=== PATIENT | female | born 1930 | race Native Hawaiian/Other Pacific Islander ===

== ENCOUNTER 2017-01-03 11:32 | Outpatient (CLI) | payer OTHER ==
[2017-01-03 13:02] LABS: POTASSIUM 3.7 mmol/L (3.6-5.2)
[2017-01-03 13:10] LABS: PLATELET COUNT 184 K/uL (152-353)
== END 2017-01-03 13:32 | disposition home or self-care (01) ==
LOC: LABW 11:32
PROVIDERS: Internal Medicine Nephrology
DX: I12.9 Hypertensive chronic kidney disease with stage 1 through stage 4 chronic kidney disease, or unspecified chronic kidney disease (principal); N18.3 Chronic kidney disease, stage 3 (moderate); E03.8 Other specified hypothyroidism
CPT/HCPCS: 36415; 80053; 80061; 84443; 85027

== ENCOUNTER 2017-01-10 10:25 | Outpatient (CLI) | payer OTHER | END 2017-01-10 23:41 | disposition home or self-care (01) | LOC: RESP 10:25 | DX: R07.9 Chest pain, unspecified (principal) | CPT/HCPCS: 93005; 93306 ==

== ENCOUNTER 2017-04-25 01:04 | Emergency (ER) | payer OTHER ==
[~2017-04-25] VITALS: Ht 160 cm; Wt 76.2 kg
[2017-04-25] MEDS ORDERED: BYSTOLIC5 MG PO (01:25)
[2017-04-25] MEDS ORDERED: HYDR25TA60 PO (01:26)
[2017-04-25] MEDS ORDERED: COZAAR100 MG PO (01:26)
[2017-04-25] MEDS ORDERED: STOOL SOFTNR100 M1 OR (01:27)
[2017-04-25] MEDS ORDERED: LEVO0.1519 PO (01:27)
[2017-04-25] MEDS ORDERED: VITAMIN D2000 UNI1 OR (01:28)
[2017-04-25] MEDS ORDERED: SYSTANE OP (01:28)
[2017-04-25 01:39] LABS: PLATELET COUNT 188 K/uL (152-353)
[2017-04-25 02:00] LABS: POTASSIUM 3.6 mmol/L (3.6-5.2)
[2017-04-25 04:36] VITALS: BP 190/82; TEMP 98.2
== END 2017-04-25 04:39 | disposition home or self-care (01) ==
LOC: ED 01:04
DX: K81.9 Cholecystitis, unspecified (principal); N28.1 Cyst of kidney, acquired; K76.0 Fatty (change of) liver, not elsewhere classified
CPT/HCPCS: 36415; 80053; 81000; 85027; 96374; 99284; J2405; Q9963

== ENCOUNTER 2017-05-02 08:48 | Outpatient (CLI) | payer OTHER ==
[~2017-05-02 08:48] MED LIST: BYSTOLIC5 MG PO; COZAAR100 MG PO; HYDR25TA60 PO; LEVO0.1519 PO; STOOL SOFTNR100 M1 OR; SYSTANE OP; VITAMIN D2000 UNI1 OR
[2017-05-02 09:10] LABS: PLATELET COUNT 175 K/uL (152-353)
[2017-05-02 10:50] LABS: POTASSIUM 4.3 mmol/L (3.6-5.2)
== END 2017-05-02 10:00 | disposition home or self-care (01) ==
LOC: LABW 08:48
PROVIDERS: Internal Medicine Nephrology
DX: I12.9 Hypertensive chronic kidney disease with stage 1 through stage 4 chronic kidney disease, or unspecified chronic kidney disease (principal); N18.3 Chronic kidney disease, stage 3 (moderate); E03.8 Other specified hypothyroidism
CPT/HCPCS: 36415; 80053; 82306; 82570; 84155; 84443; 85027

== ENCOUNTER 2017-06-12 10:03 | Outpatient (CLI) | payer OTHER ==
[2017-06-12 10:19] LABS: PLATELET COUNT 182 K/uL (152-353)
[2017-06-12 11:15] LABS: POTASSIUM 3.8 mmol/L (3.6-5.2)
== END 2017-06-12 19:26 | disposition home or self-care (01) ==
LOC: LABW 10:03
PROVIDERS: Internal Medicine Nephrology
DX: I12.9 Hypertensive chronic kidney disease with stage 1 through stage 4 chronic kidney disease, or unspecified chronic kidney disease (principal); N18.3 Chronic kidney disease, stage 3 (moderate); E03.8 Other specified hypothyroidism
CPT/HCPCS: 36415; 80053; 80061; 84443; 85027

== ENCOUNTER 2018-03-03 16:21 | Emergency (ER) | payer OTHER ==
[~2018-03-03] VITALS: Ht 160 cm; Wt 71.2 kg
[2018-03-03 16:28] VITALS: BP 198/84; TEMP 98.1
[2018-03-03 17:12] LABS: PLATELET COUNT 192 K/uL (152-353)
[2018-03-03 17:19] LABS: POTASSIUM 3.7 mmol/L (3.6-5.2)
== END 2018-03-03 19:10 | disposition home or self-care (01) ==
LOC: ED 16:21
DX: L98.8 Other specified disorders of the skin and subcutaneous tissue (principal); S90.812A Abrasion, left foot, initial encounter
CPT/HCPCS: 80053; 85027; 99282

== ENCOUNTER 2018-09-28 10:07 | Outpatient (CLI) | payer OTHER ==
[2018-09-28 10:52] LABS: PLATELET COUNT 177 K/uL (152-353)
== END 2018-09-28 19:48 | disposition home or self-care (01) ==
LOC: LABW 10:07
PROVIDERS: Internal Medicine Nephrology
DX: N18.3 Chronic kidney disease, stage 3 (moderate) (principal); I10 Essential (primary) hypertension; E03.9 Hypothyroidism, unspecified
CPT/HCPCS: 36415; 80053; 80061; 82570; 84155; 84443; 85027

== ENCOUNTER 2019-02-11 09:31 | Outpatient (CLI) | payer OTHER ==
[2019-02-11 09:57] LABS: PLATELET COUNT 190 K/uL (152-353)
[2019-02-11 10:29] LABS: POTASSIUM 4.3 mmol/L (3.6-5.2)
== END 2019-02-11 20:29 | disposition home or self-care (01) ==
LOC: LABW 09:31
PROVIDERS: Internal Medicine Nephrology
DX: I10 Essential (primary) hypertension (principal); N18.3 Chronic kidney disease, stage 3 (moderate); K64.9 Unspecified hemorrhoids; E03.9 Hypothyroidism, unspecified; E55.9 Vitamin D deficiency, unspecified; K63.5 Polyp of colon; R82.998 Other abnormal findings in urine
CPT/HCPCS: 36415; 80053; 81000; 82570; 83970; 84100; 84155; 85027; 87086; 87088

== ENCOUNTER 2019-08-12 09:45 | Outpatient (CLI) | payer OTHER ==
[2019-08-12 10:40] LABS: PLATELET COUNT 210 K/uL (152-353)
[2019-08-12 10:51] LABS: POTASSIUM 4.2 mmol/L (3.6-5.2)
== END 2019-08-12 23:17 | disposition home or self-care (01) ==
LOC: LABW 09:45
PROVIDERS: Internal Medicine Nephrology
DX: I10 Essential (primary) hypertension (principal); Z79.899 Other long term (current) drug therapy; E55.9 Vitamin D deficiency, unspecified
CPT/HCPCS: 36415; 80053; 81000; 82570; 82652; 83970; 84100; 84155; 85027; 87086; 87088

== ENCOUNTER 2020-01-14 10:06 | Outpatient (CLI) | payer OTHER ==
[2020-01-14 10:30] LABS: PLATELET COUNT 193 K/uL (152-353)
[2020-01-14 10:43] LABS: POTASSIUM 3.8 mmol/L (3.6-5.2)
== END 2020-01-14 19:47 | disposition home or self-care (01) ==
LOC: LABW 10:06
PROVIDERS: Internal Medicine Nephrology
DX: I12.9 Hypertensive chronic kidney disease with stage 1 through stage 4 chronic kidney disease, or unspecified chronic kidney disease (principal); R10.9 Unspecified abdominal pain; N18.3 Chronic kidney disease, stage 3 (moderate); K64.8 Other hemorrhoids; E03.8 Other specified hypothyroidism; K63.5 Polyp of colon; E55.9 Vitamin D deficiency, unspecified
CPT/HCPCS: 36415; 80053; 82570; 84155; 85027

== ENCOUNTER 2020-08-14 09:37 | Outpatient (CLI) | payer OTHER ==
[2020-08-14 10:13] LABS: PLATELET COUNT 174 K/uL (152-353)
[2020-08-14 10:28] LABS: POTASSIUM 3.8 mmol/L (3.6-5.2)
== END 2020-08-14 23:21 | disposition home or self-care (01) ==
LOC: LABW 09:37
PROVIDERS: Internal Medicine Nephrology
DX: E03.8 Other specified hypothyroidism (principal); E55.9 Vitamin D deficiency, unspecified; K64.8 Other hemorrhoids; N18.3 Chronic kidney disease, stage 3 (moderate); R10.9 Unspecified abdominal pain; I12.9 Hypertensive chronic kidney disease with stage 1 through stage 4 chronic kidney disease, or unspecified chronic kidney disease
CPT/HCPCS: 36415; 80053; 84100; 85027

== ENCOUNTER 2020-09-25 08:24 | Outpatient (CLI) | payer OTHER ==
[2020-09-25 09:24] LABS: POTASSIUM 4.5 mmol/L (3.6-5.2)
[2020-09-25 09:58] LABS: PLATELET COUNT 220 K/uL (152-353)
== END 2020-09-25 19:05 | disposition home or self-care (01) ==
LOC: LABW 08:24
PROVIDERS: Internal Medicine Nephrology
DX: E03.8 Other specified hypothyroidism (principal); E55.9 Vitamin D deficiency, unspecified; K64.8 Other hemorrhoids; N18.30 Chronic kidney disease, stage 3 unspecified; M19.90 Unspecified osteoarthritis, unspecified site; R10.9 Unspecified abdominal pain; I12.9 Hypertensive chronic kidney disease with stage 1 through stage 4 chronic kidney disease, or unspecified chronic kidney disease; Z79.899 Other long term (current) drug therapy
CPT/HCPCS: 36415; 80053; 80061; 82570; 84100; 84155; 85027

== ENCOUNTER 2020-12-25 09:35 | Outpatient (CLI) | payer OTHER ==
[2020-12-25 09:59] LABS: PLATELET COUNT 201 K/uL (152-353)
[2020-12-25 10:17] LABS: POTASSIUM 4.6 mmol/L (3.6-5.2)
== END 2020-12-25 19:33 | disposition home or self-care (01) ==
LOC: LABW 09:35
PROVIDERS: ATTEND Internal Medicine Nephrology
DX: E03.8 Other specified hypothyroidism (principal); E55.9 Vitamin D deficiency, unspecified; K64.9 Unspecified hemorrhoids; N18.30 Chronic kidney disease, stage 3 unspecified; M19.90 Unspecified osteoarthritis, unspecified site; R42 Dizziness and giddiness; R26.89 Other abnormalities of gait and mobility; R10.9 Unspecified abdominal pain; I12.9 Hypertensive chronic kidney disease with stage 1 through stage 4 chronic kidney disease, or unspecified chronic kidney disease
CPT/HCPCS: 36415; 80053; 81000; 82570; 84155; 85027